=== PATIENT | female | born 1925 | race Caucasian/White ===

== ENCOUNTER → 2017-04-10 | Outpatient (CLI) | payer OTHER ==
[~2017-04-10] MED LIST: ASPI81TA28 PO; ATOR-24 PO; INDA1TAB3 PO; METO50TA16 PO; MULT-506 PO; NTRGSL/4 SL; SERT25TA PO; ZNTT/150 PO
--- NOTE | 2017-04-10 14:41 | DIAGNOSTIC IMAGING REPORT ---
RIGHT HIP UNILATERAL 2 VIEWS CLINICAL HISTORY: Right hip pain following fall. COMPARISON: None FINDINGS: Alignment of the total right hip arthroplasty is anatomic. There is no periprosthetic fracture. There is an equivocal nondisplaced fracture of the right superior pubic ramus. There is a possible nondisplaced fracture of the right inferior pubic ramus as well. IMPRESSION: 1. Possible acute nondisplaced right ischiopubic ring fractures. 2. Status post total right hip arthroplasty. Hardware intact with no periprosthetic fracture. Electronically signed by: Ramone Spears M.D. 04/10/2017 2:39 PM Dictated Date/Time: 04/10/2017 2:37 PM
--- NOTE | 2017-04-10 14:44 | DIAGNOSTIC IMAGING REPORT ---
LUMBAR SPINE 5 VIEWS HISTORY: Pain LOW BACK PAIN RIGHT HIP PAIN COMPARISON: None. FINDINGS: Slight compression deformity superior endplates of T11 and T12. These are considered nonacute radiographically. Moderate degenerative disc changes throughout. This is most prominent from L3 through S1 with vacuum disc present. No evidence for subluxation. IMPRESSION: Moderate rather significant degenerative intervertebral this changes from L3 through S1. Slight compression deformity superior endplates of T11 and T12 considered nonacute. Electronically signed by: Tony Robins M.D. 04/10/2017 2:42 PM Dictated Date/Time: 04/10/2017 2:41 PM
== END | disposition home or self-care (01) ==
LOC: C.RADPV 14:07
PROVIDERS: ATTEND Neuromusculoskeletal Medicine & OMM
DX: T14.90 Injury, unspecified (principal); M54.5 Low back pain; M25.551 Pain in right hip; W19.XXXA Unspecified fall, initial encounter

== ENCOUNTER → 2017-08-08 | Outpatient (CLI) | payer OTHER ==
[2017-08-08 18:13] LABS: ALT/SGPT 19 U/L (12-78); AST/SGOT 15 U/L (15-37); BLOOD UREA NITROGEN 19 mg/dl (7-18); BUN/CREATININE RATIO 18.7 (10-20); CALCIUM 10.3 mg/dl (8.5-10.1); CARBON DIOXIDE 36 mmol/L (21-32); CHLORIDE 97 mmol/L (98-107); GLUCOSE 100 mg/dl (70-99); POTASSIUM 3.9 mmol/L (3.5-5.1); SODIUM 138 mmol/L (136-145)
[2017-08-08 18:16] LABS: ALB/GLOB RATIO 0.5 (0.9-2); ALKALINE PHOSPHATASE 104 U/L (45-117); CHOLESTEROL 121 mg/dl (0-200); CHOLESTEROL/HDL RATIO 2.6; HDL CHOLESTEROL 47 mg/dl; LDL CHOLESTEROL CALCULATED 53 mg/dl; TRIGLYCERIDES 104 mg/dl (0-150); VERY LOW DENSITY LIPOPROT CALC 21 mg/dl
== END | disposition home or self-care (01) ==
LOC: C.LABPVFM 16:07
PROVIDERS: ATTEND Family Medicine
DX: E78.00 Pure hypercholesterolemia, unspecified (principal)